=== PATIENT | female | born 1990 | race African-American/Black ===

== ENCOUNTER 2019-04-22 09:30 | Emergency (ER) | payer SELFPAY ==
[2019-04-22] MEDS ORDERED: Ibuprofen 200 MG TAB ONE (10:08)
== END 2019-04-22 11:11 | disposition home or self-care (01) ==
LOC: ERS 09:30
DX: J11.1 Influenza due to unidentified influenza virus with other respiratory manifestations (principal)
CPT/HCPCS: 87081; 87430; 87804; 99283